=== PATIENT | male | born 1995 | race Caucasian/White ===

== ENCOUNTER 2020-11-28 16:59 | Emergency (ER) | payer OTHER ==
[~2020-11-28] VITALS: Ht 170.2 cm; Wt 71.2 kg
[2020-11-28] MEDS ORDERED: NORCO5 PO (17:41)
[2020-11-28] MEDS ORDERED: KEFLEX500 M1 PO (17:41)
[2020-11-28] MEDS ORDERED: BACTRIM DS TAB1 EACH PO (17:41)
[2020-11-28 18:02] VITALS: BP 144/73
== END 2020-11-28 18:02 | disposition home or self-care (01) ==
LOC: M.ERS 16:59
DX: L03.313 Cellulitis of chest wall (principal)